=== PATIENT | male | born 1990 | race African-American/Black ===

== ENCOUNTER 2018-06-06 22:25 | Emergency (ER) | payer OTHER ==
[~2018-06-06] VITALS: Ht 177.8 cm; Wt 79.4 kg
[2018-06-06 22:27] VITALS: BP 141/79
[2018-06-06] MEDS ORDERED: LIDOCAINE WITH 8.4% SOD BICARB 3 ML DISP.SYRIN. ONE (22:51)
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
[2018-06-06] MEDS ORDERED: DIPHTH,PERTUSS(ACELL),TET TOX 0.5 ML DISP.SYRIN. VAX IM ONE (23:00)
[2018-06-06] MEDS ORDERED: LIDOCAINE 1% Multi-Dose 20 ML VIAL. INJ ONE (23:00)
[2018-06-06] MEDS ORDERED: IBUP-1060 PO (23:12)
[2018-06-06] MEDS ORDERED: TRAM50TA PO (23:12)
== END 2018-06-06 23:20 | disposition home or self-care (01) ==
LOC: ER 22:25 → EEVIPCON 22:25 → ER 23:20
DX: S01.111A Laceration without foreign body of right eyelid and periocular area, initial encounter (principal); Y04.0XXA Assault by unarmed brawl or fight, initial encounter; Y93.89 Activity, other specified; Y92.89 Other specified places as the place of occurrence of the external cause; Y99.8 Other external cause status
CPT/HCPCS: 12013; 90471; 90715; 99283-25

== ENCOUNTER 2018-06-11 13:58 | Emergency (ER) | payer OTHER ==
[~2018-06-11] VITALS: Ht 182.9 cm; Wt 79.4 kg
[~2018-06-11 13:58] MED LIST: IBUP-1060 PO; TRAM50TA PO
[2018-06-11 14:34] VITALS: BP 144/78
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
== END 2018-06-11 14:55 | disposition home or self-care (01) ==
LOC: ER 13:58
DX: S01.111D Laceration without foreign body of right eyelid and periocular area, subsequent encounter (principal); F90.9 Attention-deficit hyperactivity disorder, unspecified type; Y08.89XD Assault by other specified means, subsequent encounter
CPT/HCPCS: 99281